=== PATIENT | male | born 1970 | race Caucasian/White ===

== ENCOUNTER 2016-09-09 11:09 | Emergency (ER) | payer MEDICARE, OTHER ==
[~2016-09-09] VITALS: Ht 180.3 cm; Wt 87.1 kg
--- NOTE | 2016-09-09 11:25 | NUR ---
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 NOW C/O SOB HOWEVER RESPIRATIONS APPEAR EVEN AND UNLABORED. NAD NOTED. SKIN WARM NONDIAPHORETIC. NO OTHER COMPLAINTS. IN ER BED 12 ON MONITOR.
[2016-09-09] MEDS ORDERED: ASPIRIN 81 MG TAB.CHEW PO ONE (12:00)
[2016-09-09] MEDS ORDERED: ASPIRIN 81 MG TAB.CHEW ONE (12:01)
[2016-09-09 12:06] LABS: EOSINOPHILS # (AUTO) 0.2 /CMM (0.0-0.7); HEMOGLOBIN 14.2 g/dL (13.5-17.5); MONOCYTES # (AUTO) 0.6 /CMM (0.1-1.30)
[2016-09-09 12:08] LABS: BASOPHILS # (AUTO) 0.3 /CMM (0.0-0.2); BASOPHILS % (AUTO) 4.6 % (0.0-2.0); EOSINOPHILS % (AUTO) 2.7 % (0.0-6.0); HEMATOCRIT 43 % (39-51); LYMPHOCYTES # (AUTO) 1.4 /CMM (0.8-4.8); LYMPHOCYTES % (AUTO) 21.6 % (20.0-44.0); MEAN CORPUSCULAR HEMOGLOBIN 30 PG (26.0-33.0); MEAN CORPUSCULAR HGB CONC 33 g/dl (31.0-36.0); MEAN CORPUSCULAR VOLUME 91 fL (80-96); NEUTROPHILS # (AUTO) 4.2 /CMM (1.8-8.9); NEUTROPHILS % (AUTO) 62.1 % (43.0-81.0); PLATELET COUNT (AUTO) 267 /CMM (150-450); RDW COEFFICIENT OF VARIATION 12.3 (11.5-15.0); RED BLOOD CELL COUNT(AUTO) 4.68 MIL/uL (4.5-6.0); WHITE BLOOD COUNT (AUTO) 6.7 K/uL (4.3-11.0)
[2016-09-09 12:12] LABS: CALCIUM, SERUM 8.5 mg/dL (8.5-10.1); CARBON DIOXIDE 26 mmol/L (21-32); CHLORIDE 104 mmol/L (98-107); CREATININE 0.9 mg/dL (0.6-1.3); GFR 90 mL/min (>60); GLUCOSE 122 mg/dL (74-106); POTASSIUM 2.9 mmol/L (3.5-5.1); SODIUM SERUM 140 mmol/L (136-145); UREA NITROGEN, BLOOD 23 mg/dL (7-18)
[2016-09-09 12:16] LABS: INR 0.97 (0.87-1.13); PROTHROMBIN TIME 10.1 SECS (9.5-12.7)
[2016-09-09 12:21] LABS: TROPONIN I < 0.017 ng/mL (0.00-0.056)
[2016-09-09] MEDS ORDERED: POTASSIUM CHLORIDE 20 MEQ TAB.PRT.SR PO ONE ×2 (13:30→13:51)
--- NOTE | 2016-09-09 13:37 | NUR ---
SO JABARI CASTRO WANTS HIM BACK UPON DISCHARGE, WILL SEND DIRECTOR TELEMETRY IF WE CALL THEM.
--- NOTE | 2016-09-09 13:57 | NUR ---
RESPatient is resting comfortably in bed with eyes closed. Easily aroused. VSS
--- NOTE | 2016-09-09 17:23 | NUR ---
Patient is resting comfortably in bed with eyes closed. Easily aroused. VSS. ALL NEEDS ATTENDED TO.
--- NOTE | 2016-09-09 18:17 | NUR ---
IV removed. Catheter intact and site benign. Pressure and 4x4 applied to site. No bleeding noted.
--- NOTE | 2016-09-09 18:17 | NUR ---
Patient discharged to [facility] - THE PATIENT IS AN INPATIENT - [facility]; in stable condition. Written and verbal after care instructions given. Patient verbalizes understanding of instruction.
[2016-09-09 18:21] VITALS: BP 106/76
== END 2016-09-09 18:23 | disposition home or self-care (01) ==
LOC: ER 11:12
DX: R07.9 Chest pain, unspecified (principal); R06.02 Shortness of breath; F10.129 Alcohol abuse with intoxication, unspecified; F14.10 Cocaine abuse, uncomplicated; E87.6 Hypokalemia; Z79.82 Long term (current) use of aspirin
CPT/HCPCS: 36415; 71010-TC; 80048-TC; 84484-TC; 85025-TC; 85730-TC; A4606; G0480; Z7610

== ENCOUNTER 2020-05-28 18:03 | Emergency (ER) | payer MEDICARE, OTHER ==
[~2020-05-28] VITALS: Ht 180.3 cm; Wt 88.5 kg
--- NOTE | 2020-05-28 19:34 | NUR ---
PT BISBELF C/O FEELING DEPRESSED. SUICIDAL W/ PLAN TO OVERDOSE OR RUN TO TRAFFIC. PT AOX4 RR EVEN AND UNLABORED. NO SOB NOTED. NO NVD AT THIS TIME. NO ACUTE DISTRESS NOTED. PT CALM AND COOPERATIVE AT THIS TIME. WILL CONTINUE TO CLOSELY MONITOR.
--- NOTE | 2020-05-28 19:55 | NUR ---
COVID SWAB COLLECTED AND SENT TO LAB
--- NOTE | 2020-05-28 20:02 | NUR ---
BLOOD COLLECTED VIA STRAIGHT DRAW AND SENT TO LAB
[2020-05-28 20:07] LABS: BASOPHILS # (AUTO) 0.2 /CMM (0.0-0.2); HEMATOCRIT 38 % (39-51); HEMOGLOBIN 13.1 g/dL (13.5-17.5); LYMPHOCYTES % (AUTO) 15.6 % (20.0-44.0); MEAN CORPUSCULAR HGB CONC 34 g/dl (31.0-36.0); MEAN CORPUSCULAR VOLUME 94 fL (80-96); MONOCYTES # (AUTO) 0.6 /CMM (0.1-1.30); MONOCYTES % (AUTO) 10.2 % (2.0-12.0); NEUTROPHILS # (AUTO) 4.2 /CMM (1.8-8.9); NEUTROPHILS % (AUTO) 67.2 % (43.0-81.0); PLATELET COUNT (AUTO) 278 /CMM (150-450); RED BLOOD CELL COUNT(AUTO) 4.07 MIL/uL (4.5-6.0); WHITE BLOOD COUNT (AUTO) 6.2 K/uL (4.3-11.0)
[2020-05-28 20:36] LABS: CALCIUM, SERUM 8.7 mg/dL (8.5-10.1); CARBON DIOXIDE 28 mmol/L (21-32); CHLORIDE 101 mmol/L (98-107); CREATININE 1.1 mg/dL (0.6-1.3); GLUCOSE 99 mg/dL (74-106); POTASSIUM 3.2 mmol/L (3.5-5.1); SODIUM SERUM 138 mmol/L (136-145); UREA NITROGEN, BLOOD 18 mg/dL (7-18)
--- NOTE | 2020-05-28 20:39 | NUR ---
LAB CALLED REGARDING NEGATIVE COVID RESULT.
[2020-05-28 20:42] LABS: ALANINE AMINOTRANSFERASE 48 U/L (12-78); ALBUMIN 3.7 g/dL (3.4-5.0); ALCOHOL, BLOOD < 3 mg/dL (0-0); ALKALINE PHOSPHATASE 64 U/L (46-116); ASPARTATE AMINOTRANSFERASE 48 U/L (15-37); BILIRUBIN,DIRECT 0.2 mg/dL (0.0-0.2); BILIRUBIN,TOTAL 0.4 mg/dL (0.2-1.0); TOTAL PROTEIN, SERUM 7.2 g/dL (6.4-8.2)
[2020-05-28 21:12] LABS: BILIRUBIN,URINE SMALL (NEGATIVE); COLOR,URINE YELLOW (YELLOW); LEUKOCYTE ESTERASE ,URINE NEGATIVE (NEGATIVE); NITRITE, URINE NEGATIVE (NEGATIVE); PROTEIN,URINE NEGATIVE (NEGATIVE); UGLUCOSE NEGATIVE (NEGATIVE)
[2020-05-28 21:16] LABS: ACETAMINOPHEN < 10 ug/ml (10-30)
[2020-05-28 21:23] LABS: BACTERIA,URINE Few /HPF (None Seen); CALCIUM OXALATE CRYSTALS,UR Few /HPF (None Seen); SQUAMOUS EPITHELIAL CELL,UR Few /HPF (None Seen); WBC,URINE 0-2 /HPF (0-3)
--- NOTE | 2020-05-28 22:23 | NUR ---
PA ZEP WITH PT FOR EVAL.
--- NOTE | 2020-05-28 22:55 | NUR ---
CLINICAL AND FACESHEET FAXED TO [facility] INTAKE FOR VOLUNTARY PSYCH ADMISSION.
--- NOTE | 2020-05-29 02:20 | NUR ---
[place] [facility]. [facility] accepted [facility] by Dr Joya. # for report [phone]
--- NOTE | 2020-05-29 03:00 | NUR ---
[facility] CALL THE CAR CALLED FOR TRANSPORT. TRIP#[id number]
--- NOTE | 2020-05-29 03:25 | NUR ---
call from siddhartha from call the car w/ ETA of 0430 w/ [facility].
--- NOTE | 2020-05-29 03:46 | NUR ---
report given to gonzales at [facility]
--- NOTE | 2020-05-29 07:18 | NUR ---
RE[facility] G[facility] KALYAN
[2020-05-29 07:19] VITALS: BP 137/83
== END 2020-05-29 07:20 ==
LOC: ER 18:03
DX: R45.851 Suicidal ideations (principal); F32.9 Major depressive disorder, single episode, unspecified; F19.10 Other psychoactive substance abuse, uncomplicated; Z20.822 Contact with and (suspected) exposure to COVID-19; F20.9 Schizophrenia, unspecified; R74.01 Elevation of levels of liver transaminase levels
CPT/HCPCS: 36415; 80048-TC; 80076-TC; 81001; 85025-TC; C9803; G0480

== ENCOUNTER 2020-06-19 13:43 | Emergency (ER) | payer MEDICARE, OTHER ==
[~2020-06-19] VITALS: Ht 180.3 cm; Wt 84.8 kg
--- NOTE | 2020-06-19 13:59 | NUR ---
bibs "been having suicidal thoughts for more than a week. I want to jump", to ER bed 11, hooked to monitor, changed to hosp gown, warm blanket provided, patient aao X 4. breathing even and unlabored. sitter at bedside for safety. suicidal precaution applied. awaiting MD arteaga
--- NOTE | 2020-06-19 14:05 | NUR ---
Drt Law at bedside for eval
--- NOTE | 2020-06-19 14:20 | NUR ---
security at bedside for wanding, all belongings placed to patient locker
--- NOTE | 2020-06-19 14:30 | NUR ---
RAPID COVID SWAB DONE AND SENT TO LAB
[2020-06-19 14:34] LABS: BASOPHILS # (AUTO) 0.1 /CMM (0.0-0.2); BASOPHILS % (AUTO) 1.4 % (0.0-2.0); HEMATOCRIT 41 % (39-51); HEMOGLOBIN 13.8 g/dL (13.5-17.5); LYMPHOCYTES # (AUTO) 2.3 /CMM (0.8-4.8); LYMPHOCYTES % (AUTO) 23.8 % (20.0-44.0); MEAN CORPUSCULAR HGB CONC 34 g/dl (31.0-36.0); MEAN CORPUSCULAR VOLUME 94 fL (80-96); MONOCYTES # (AUTO) 0.8 /CMM (0.1-1.30); MONOCYTES % (AUTO) 8.2 % (2.0-12.0); NEUTROPHILS # (AUTO) 6.1 /CMM (1.8-8.9); NEUTROPHILS % (AUTO) 63.6 % (43.0-81.0); PLATELET COUNT (AUTO) 306 /CMM (150-450); RED BLOOD CELL COUNT(AUTO) 4.35 MIL/uL (4.5-6.0); WHITE BLOOD COUNT (AUTO) 9.6 K/uL (4.3-11.0)
[2020-06-19 14:35] LABS: BILIRUBIN,URINE Negative (NEGATIVE); COLOR,URINE YELLOW (YELLOW); LEUKOCYTE ESTERASE ,URINE Negative (NEGATIVE); NITRITE, URINE Negative (NEGATIVE); PROTEIN,URINE Negative (NEGATIVE); UGLUCOSE Negative (NEGATIVE); UROBILINOGEN,URINE 0.2 EU/dL (0.2)
[2020-06-19 14:43] LABS: BACTERIA,URINE Rare /HPF (None Seen); SQUAMOUS EPITHELIAL CELL,UR Rare /HPF (None Seen); WBC,URINE 0-2 /HPF (0-3)
[2020-06-19 14:46] LABS: POTASSIUM 3.8 mmol/L (3.5-5.1)
[2020-06-19 14:52] LABS: ALBUMIN 4.1 g/dL (3.4-5.0); BILIRUBIN,DIRECT 0.1 mg/dL (0.0-0.2); BILIRUBIN,TOTAL 0.7 mg/dL (0.2-1.0); TOTAL PROTEIN, SERUM 7.8 g/dL (6.4-8.2)
--- NOTE | 2020-06-19 14:54 | NUR ---
PT REQUESTED SANDWICH. PT PROVIDES WITH SANDWICH.
--- NOTE | 2020-06-19 16:03 | NUR ---
COVID RESULT: NEGATIVE
--- NOTE | 2020-06-19 16:17 | NUR ---
FAXED FACESHEET AND CLINICALS TO [facility]
--- NOTE | 2020-06-19 18:12 | NUR ---
SUDEHER CERVANTES MD IS [facility] UNIT I PLEASE CALL [phone] LAZARO CALL [phone].
--- NOTE | 2020-06-19 18:23 | NUR ---
CALLED TORRI VASQUEZ [phone] CALLED ELIZABETH ETA 45MINS.
--- NOTE | 2020-06-19 19:14 | NUR ---
REPORT GIVEN TO KAYE PALMA OF [facility]
[2020-06-19 19:18] VITALS: BP 119/84
--- NOTE | 2020-06-19 19:18 | NUR ---
PICKED UP BY [facility] IN STABLE CONDITION. PATIENT WILL BE TRANSFERRED TO [facility]. ALL BELONGINGS BROUGHT WITH THE PATIENT.
== END 2020-06-19 19:23 ==
LOC: ER 13:44
DX: R45.851 Suicidal ideations (principal); F19.10 Other psychoactive substance abuse, uncomplicated; Z20.822 Contact with and (suspected) exposure to COVID-19; F17.200 Nicotine dependence, unspecified, uncomplicated; R03.0 Elevated blood-pressure reading, without diagnosis of hypertension
CPT/HCPCS: 36415; 80048-TC; 80076-TC; 81001; 85025-TC; C9803; G0480

== ENCOUNTER 2020-09-22 20:46 | Emergency (ER) | payer MEDICARE, OTHER ==
[~2020-09-22] VITALS: Ht 182.9 cm; Wt 79.4 kg
--- NOTE | 2020-09-22 21:21 | NUR ---
covid swab collected and sent to lab
--- NOTE | 2020-09-22 21:25 | NUR ---
Patient came in to the er c/o suicidal ideation wants to overdose on medication. On room air, breathing evenly and unlabored. Sitter at bedside for constant monitoring. Will continue to monitor accordingly.
[2020-09-22 21:53] LABS: BASOPHILS % (AUTO) 0.4 % (0.0-2.0); EOSINOPHILS % (AUTO) 2.1 % (0.0-6.0); HEMATOCRIT 42 % (39-51); LYMPHOCYTES # (AUTO) 1.4 /CMM (0.8-4.8); LYMPHOCYTES % (AUTO) 19.2 % (20.0-44.0); MEAN CORPUSCULAR HGB CONC 34 g/dl (31.0-36.0); MEAN CORPUSCULAR VOLUME 92 fL (80-96); MONOCYTES # (AUTO) 0.6 /CMM (0.1-1.30); MONOCYTES % (AUTO) 8.6 % (2.0-12.0); NEUTROPHILS # (AUTO) 4.9 /CMM (1.8-8.9); NEUTROPHILS % (AUTO) 69.7 % (43.0-81.0); PLATELET COUNT (AUTO) 266 /CMM (150-450); RED BLOOD CELL COUNT(AUTO) 4.55 MIL/uL (4.5-6.0); WHITE BLOOD COUNT (AUTO) 7.1 K/uL (4.3-11.0)
[2020-09-22 22:03] LABS: CALCIUM, SERUM 9.3 mg/dL (8.5-10.1); CREATININE 0.9 mg/dL (0.6-1.3); POTASSIUM 2.9 mmol/L (3.5-5.1)
[2020-09-22 22:09] LABS: ALBUMIN 3.9 g/dL (3.4-5.0); BILIRUBIN,DIRECT 0.3 mg/dL (0.0-0.2); BILIRUBIN,TOTAL 1.6 mg/dL (0.2-1.0); TOTAL PROTEIN, SERUM 7.6 g/dL (6.4-8.2)
[2020-09-22] MEDS ORDERED: POTASSIUM CHLORIDE 20 MEQ TAB.PRT.SR PO ONE ×3 (22:29→22:30)
[2020-09-23 02:00] LABS: BILIRUBIN,URINE Negative (NEGATIVE); COLOR,URINE YELLOW (YELLOW); LEUKOCYTE ESTERASE ,URINE Negative (NEGATIVE); NITRITE, URINE Negative (NEGATIVE); PROTEIN,URINE Negative (NEGATIVE); UGLUCOSE Negative (NEGATIVE)
[2020-09-23 02:38] LABS: BACTERIA,URINE None seen /HPF (None Seen); SQUAMOUS EPITHELIAL CELL,UR Few /HPF (None Seen); URINE AMORPHOUS PHOSPHATES Moderate /HPF (None Seen); WBC,URINE 0-2 /HPF (0-3)
--- NOTE | 2020-09-23 02:58 | NUR ---
Patient accepted by Dr. Joya at [facility] call report unit 1
--- NOTE | 2020-09-23 03:04 | NUR ---
PER TEE THE PT WILL BE PICKED UP AT [phone] FOR TRANSPORT TO [facility]
--- NOTE | 2020-09-23 03:04 | NUR ---
report given to Mimi PALMA for carmen
--- NOTE | 2020-09-23 03:07 | NUR ---
ONE HOUR ETA FOR PICKUP VIA [facility]. WILL CANCEL [facility].
[2020-09-23 04:00] VITALS: BP 120/77
--- NOTE | 2020-09-23 04:04 | NUR ---
patient picked up by private ambulance going to [facility] in no distress.
== END 2020-09-23 04:04 ==
LOC: ER 20:51
DX: R45.851 Suicidal ideations (principal); F19.10 Other psychoactive substance abuse, uncomplicated; Z20.822 Contact with and (suspected) exposure to COVID-19; Z98.1 Arthrodesis status; F31.9 Bipolar disorder, unspecified; F43.10 Post-traumatic stress disorder, unspecified; F90.9 Attention-deficit hyperactivity disorder, unspecified type; Z91.14 Patient's other noncompliance with medication regimen
CPT/HCPCS: 36415; 80048-TC; 80076-TC; 81001; 85025-TC; C9803; G0480

== ENCOUNTER 2022-03-01 17:11 | Emergency (ER) | payer MEDICARE, OTHER ==
--- NOTE | 2022-03-01 17:57 | NUR ---
CALLED IN ED WAITING ROOM. NO RESPONSE
--- NOTE | 2022-03-01 18:00 | NUR ---
CALLED TO TRIAGE,NO ANSWER
== END 2022-03-01 18:21 | disposition left against medical advice (07) ==
LOC: ER 17:13
DX: Z53.21 Procedure and treatment not carried out due to patient leaving prior to being seen by health care provider (principal)